=== PATIENT | female | born 1945 | race Caucasian/White ===

== ENCOUNTER 2024-07-12 12:40 | Outpatient (CLI) | payer MEDICARE, SELFPAY ==
[2024-07-12 13:39] LABS: Alanine Aminotransferase 14 U/L (6-35); Albumin Level 4.3 g/dL (3.5-5.1); Alkaline Phosphatase 114 U/L (38-126); Anion Gap 6 mmol/L (4-12); Aspartate Amino Transferase 22 U/L (14-36); Bilirubin,Total 0.7 mg/dL (0.2-1.3); Blood Urea Nitrogen 11 mg/dL (7-17); Calcium 9.4 mg/dL (8.4-10.2); Carbon Dioxide 30 mmol/L (22-30); Chloride 104 mmol/L (98-107); Cholesterol 172 mg/dL (0-200); Estimated Glomerular Filt Rate > 60; Glucose 100 mg/dL (65-110); HDL Direct 105 mg/dL; Potassium 4.3 mmol/L (3.4-5.0); Sodium 140 mmol/L (137-145); Triglycerides 66 mg/dL (<150)
[2024-07-12 13:48] LABS: Basophils Percent Auto 0.2 % (0.2-1.2); Eosinophils Absolute Auto 0.2 K/mm3 (0-0.3); Eosinophils Percent Auto 2.4 % (0-4.4); Hematocrit 48.3 % (37.0-47.0); Hemoglobin 14.7 g/dL (12.0-15.0); Immature Granulocyte Absolute 0.03 K/mm3 (0.00-0.031); Immature Granulocyte Percent A 0.3 % (0-0.5); Lymphocytes Absolute Auto 2.65 K/mm3 (0.9-3.2); Lymphocytes Percent Auto 29.4 % (18.3-44.2); Mean Corpuscular HGB Conc 30.4 g/dl (32-36); Mean Corpuscular Hemoglobin 30.7 pg (26-34); Mean Corpuscular Volume 100.8 fl (80-100); Mean Platelet Volume 9.6 fl (7.4-10.4); Monocytes Absolute Auto 0.8 K/mm3 (0.1-0.6); Monocytes Percent Auto 9.3 % (2.6-8.5); Neutrophils Absolute Auto 5.2 K/mm3 (1.3-6.7); Neutrophils Percent Auto 58.4 % (45.5-73.1); Platelet Count Result 308 k/mm3 (150-375); Red Blood Count 4.79 M/mm3 (4.2-5.4); Red Cell Distribution Width 13.9 % (11.5-14.5)
[2024-07-12 13:50] LABS: LDL Cholesterol Direct 38 mg/dL
--- OUTSIDE RECORDS SUMMARY | 2024-07-12 13:51 | XMS_ITS | Data Portability ---
Author Organization [place] - [facility], [facility] Address [address] [facility] [address] [place] [address] Assessment No assessment recorded. Plan of Treatment Reminders Order Date Submit Date Provider Last Modified By Organization Details Last Modified Time Details Appointments Follow Up 15 2024 02:45P M Anand Hernández MD Not available Not available Not available Lab lipid panel, serum 2024 025 ROSMERY Not available 06/02/2024 04:05:27 microalbu min/creat inine, mass ratio, urine 2024 025 ROSMERY Not available 06/02/2024 04:05:27 vitamin B12, serum 2024 025 [facility] ([facility]olog[facility] Orders Only), [address], [address], [place], [address], 06/02/2024 04:05:27 folate, serum 2024 025 [facility] ([facility]olog[facility]ard Orders Only), [address], [address], [place], [address], 06/02/2024 04:05:27 CBC w/ auto diff 2024 025 [facility] ([facility]ologuard Orders Only), [address], [address], [place], [address], 06/02/2024 04:05:27 lipid panel, serum 2024 025 [facility] ([facility]olog[facility] Orders Only), [address], [address], [place], [address], 06/02/2024 04:05:27 CMP, serum or plasma 2024 025 [facility]), [address], [address], [place], [address], 06/02/2024 04:05:27 urinalysi s complete, reflex culture 2024 025 [facility] ([facility]), [address], [address], [place], [address], 06/02/2024 04:05:28 TSH, serum or plasma 2024 025 [facility] ([facility] Orders Only), [address], [address], [place], [address], 06/02/2024 04:05:28 lipid panel, serum 2023 024 ROSMERY Not available 05/22/2024 05:01:09 microalbu min/creat inine, mass ratio, urine 2023 024 ROSMERY Not available 05/22/2024 05:01:09 vitamin B12, serum 2023 024 [facility] (Cologuard Orders Only), [address], [address], [place], [address], 05/22/2024 05:01:09 folate, serum 2023 024 [facility] (Cologuard Orders Only), [address], [address], [place], [address], 05/22/2024 05:01:09 noninvasi ve colorecta l cancer DNA + occult blood screening , QL, stool 2023 024 [facility] ([facility]ologuard Orders Only), [address], [address], [place], [address], 05/22/2024 05:01:09 lipid panel, serum 2023 024 ROSMERY Not available 05/26/2023 16:08:58 microalbu min/creat inine, mass ratio, urine 2023 024 ROSMERY Not available 11/08/2023 05:01:09 vitamin B12, serum 2023 024 ROSMERY Not available 11/29/2023 05:00:56 folate, serum 2023 024 ROSMERY Not available 11/08/2023 05:01:09 noninvasi ve colorecta l cancer DNA + occult blood screening , QL, stool 2023 024 ROSMERY [facility] (Cologuard Orders Only), [address], [address], [place], [address], 05/13/2023 10:06:25 CBC w/ auto diff 2023 024 ROSMERY Not available 05/26/2023 16:08:58 CMP, serum or plasma 2023 024 ROSMERY Not available 05/26/2023 16:08:58 TSH, serum or plasma 2023 024 ROSMERY Not available 05/26/2023 16:08:58 urinalysi s complete, reflex culture 2023 024 ROSMERY Not available 05/27/2023 16:01:59 microalbu min/creat inine, mass ratio, urine 2023 024 ROSMERY Not available 11/08/2023 05:01:09 Referral orthopedi c surgeon referral 2023 024 moody [facility], [address] [facility], [address], [place], [address], 03/01/2024 10:12:[address]-orthot ist referral 2023 024 [facility], [address], [address], [place], [address], 06/12/2024 05:00:56 Procedures None recorded. Surgeries None recorded. Imaging MRI, shoulder, w/o contrast - right shoulder 2023 024 moody [facility], [address] [facility], [place], [address], 03/01/2024 10:12:39 Medication Orders rosuvasta tin 20 mg tablet 2024 025 ROS[id number] [facility], [address] [place] [address], [address], 05/26/2024 16:41:24 albuterol sulfate HFA 90 mcg/actua tion aerosol inhaler 2024 025 ROS[facility] [address], [address] [place] [address], [address], 05/26/2024 16:41:[address] 20 mg tablet 2024 025 ROSM[facility], [address] [place] [address], [address], 05/26/2024 16:41:25 baclofen 10 mg tablet 2024 025 [facility], [address] [place] [address], [address], 05/26/2024 16:41:25 amlodipin e 5 mg tablet 2024 025 [facility] [address] [facility], [address] [place] [address], [address], 05/26/2024 16:41:25 atorvasta tin 40 mg tablet 2024 025 [facility] [address], [address], 05/26/2024 16:41:25 lisinopri l 40 mg tablet 2024 025 ROS[facility] [id number] [facility], [address] [place] [address], [address], 05/26/2024 16:41:24 Patient TargetsNo targets recorded. Patient Instructions Encounter Date Encounter Id Patient Instructions Last Modified By Organization Details Last Modified Time 11/04/2022 [id number] controlling your asthma: care instructions [email or web address] Not available 11/04/2022 16:55:14 learning about asthma [email or web address] Not available 11/04/2022 16:55:14 proteinuria: car e instructions [email or web address] Not available 11/04/2022 16:55:14 high blood pressure: care instructions [email or web address] Not available 11/04/2022 16:55:14 learning about high blood pressure [email or web address] Not available 11/04/2022 16:55:14 05/05/2023 [id number] proteinuria: car e instructions [email or web address] Not available 05/05/2023 14:17:40 controlling your asthma: care instructions [email or web address] Not available 05/05/2023 14:17:40 learning about asthma [email or web address] Not available 05/05/2023 14:17:39 high blood pressure: care instructions [email or web address] Not available 05/05/2023 14:17:40 learning about high blood pressure [email or web address] Not available 05/05/2023 14:17:40 11/12/2023 [id number] proteinuria: car e instructions [email or web address] Not available 11/12/2023 16:08:59 controlling your asthma: care instructions [email or web address] Not available 11/12/2023 16:08:59 learning about asthma [email or web address] Not available 11/12/2023 16:08:59 high blood pressure: care instructions [email or web address] Not available 11/12/2023 16:08:59 learning about high blood pressure [email or web address] Not available 11/12/2023 16:08:59 02/23/2024 [id number] dislocated shoulder: care instructions [email or web address] Not available 02/23/2024 17:40:33 shoulder dislocation: rehab exercises [email or web address] Not available 02/23/2024 17:40:33 I spent a total of __32____ minutes (excluding separately reportable procedure time ) in care of this patient. [email or web address] Not available 02/23/2024 18:16:59 05/26/2024 [id number] proteinuria: car e instructions [email or web address] Not available 05/26/2024 16:41:18 controlling your asthma: care instructions [email or web address] Not available 05/26/2024 16:41:17 learning about asthma [email or web address] Not available 05/26/2024 16:41:18 high blood pressure: care instructions Not available 05/26/2024 16:41:18 learning about high blood pressure [email or web address] Not available 05/26/2024 16:41:18 I spent a total of _34 minutes (excluding separately reportable procedure time ) in care of this patient. 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 [email or web address] [address], [place], [address], 02/25/2024 17:43:30 Result Notes None recorded. Problems Name Problem SNOMED Code Status Onset Date Resolution Date Notes Provider Name and Address Organization Details Recorded Time Acquired deformit y of ankle AND/OR foot 38908014 Active Acquired deformit y of ankle AND/OR foot Not Available [facility] 3 04:02:22 Acute bronchit is 38686021 Completed 11/04/2022 Acute bronchit is Anand Hernández MD [address] [facility] [address], [place], [address] , [facility] 3 16:40:24 Impaired mobility 22054534 Active 2016 Limited mobility Not Available [facility] 3 04:02:22 Asthma 562325407 Active Asthma Not Available [facility] 3 04:02:22 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 769864570 Active 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 Not Available [facility] 3 04:02:22 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 16694472082 9109 Completed 11/04/2022 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 Anand Hernández MD [address] [facility] [address], [place], [address] , [facility] 3 16:41:37 Asthenia 54148583 Completed 11/04/2022 Weakness Anand Hernández MD [address] [facility] [address], [place], [address] , [facility] 3 16:40:35 Vaccinat ion given 553298111 Completed 201411/04/2022 Vaccinat ion given Anand Hernández MD [address] [facility] [address], [place], [address] , [facility] 3 16:41:38 Preventi ve procedur e Active 2022 [facility] 16:28:46 Mixed hyperlip idemia 117453652 Active 2022 Anand Hernández MD [address], [place], [address] , [facility] 3 16:40:57 Contract ure of multiple joints 323748461 Active 2022 Anand Hernández MD [address], [place], [address] , [facility] 3 16:41:09 Essentia l hyperten grazyna 45609847 Active 2022 Anand Hernández MD [address], [place], [address] , [facility] 3 16:46:29 Vitamin B12 deficien cy (non anemic) 33821044 Active 2022 Anand Hernández MD [address], [place], [address] , [facility] 3 16:46:47 Proteinu precious 01783928 Active 2022 Anand Hernández MD [address] [facility] [address], [place], [address] , [facility] 3 16:48:09 Pain of right shoulder joint 75755902411 846194 Active 2023 [facility] 4 13:49:21 Dislocat ion of shoulder joint 958902732 Active 2023 Anand Hernández MD [address], [place], [address] , [facility] 4 17:37:44 Problem Notes None recorded. Procedures Surgical History None recorded. Imaging Results Imaging Date Name Status LastModified by Organiz ation Details LastModified Time 02/19/2024 XR, shoulder, 2 or more view completed [address], [place], [address], 02/25/2024 17:43:30 Procedure Notes None recorded. Medical Equipment None Reported. Allergies Allergen ID Allergen Name Allergen Category Reaction Reaction Severity Criticality Documentation Date Start Date Code Code System Note Provider Name and Address Organization Details Recorded Time 996 Substance with sulfonami de structure and antibacte rial mechanism of action (substanc e) medicatio n anaphylax is Not available high 11/04/2022 96251 8003 SNOMED [facility] 3 16:23:53 Medications Name Sig Start Date Stop Date Status Note LastModified by Organization Details LastModified Time atorvastatin 40 mg tablet Take 1 tablet every day by oral route for 100 days. 2024 active Not Available Not Available Not Avai lable hydrocodone 5 mg-acetamino phen 325 mg tablet TAKE 1 TABLET BY MOUTH EVERY 6 HOURS NEEDED FOR ACUTE PAIN LESS THAN 7 DAY SUPPLY 05/26 completed Not Available Not Available Not Available lisinopril 20 mg tablet TAKE 1 TABLET BY MOUTH EVERY DAY 05/26 completed Not Available Not Available Not Available amlodipine 5 mg tablet Take 1 tablet every day by oral route. active Not Available Not Available No t Available baclofen 10 mg tablet TAKE 1 TABLET BY MOUTH TWICE A DAY 2024 active Not Available Not Available Not Avai lable zafirlukast 20 mg tablet TAKE 1 TABLET BY MOUTH TWICE DAILY 2024 active Not Available Not Available Not Avai lable albuterol sulfate HFA 90 mcg/actuatio n aerosol inhaler INHALE 2 PUFFS NEEDED EVERY 6 HOURS active Not Available Not Available No t Available lisinopril 40 mg tablet TAKE 1 TABLET BY MOUTH EVERY DAY 2024 active Not Available Not Available Not Avai lable rosuvastatin 20 mg tablet TAKE 1 TABLET BY MOUTH DAILY 2024 active Not Available Not Available Not Avai lable Vitamin D3 1 daily active Not Available Not A vailable Not Available cholecalcife rol (vitamin D3) 50 mcg (2,000 unit) capsule 1 capsule Orally Once a day active Not Available Not Available No t Available [facility] Flonase Allergy Relief 50 mcg/actuatio n nasal spray,susp Nasal 05/26 completed Not Available Not Available Not Available potassium citrate (replacement ) 99 mg capsule Take 1 capsule every day by oral route. active Not Available Not Available No t Available Vitals Date Recorded Body height Body temperature Heart rate Respiratory rate Oxygen saturation Oxygen saturation in Arterial blood by Pulse oximetry Systolic blood pressure Diastolic blood pressure Provider Name and Address Organization Details Last Updated DateTime 4 162.56 cm 97.8 [degF] 85 /min 18 /min 92 % 92 % 100 mm[Hg] 60 mm[Hg] [facility] 4 15:33:45 Date Recorded Body height Body temperature Heart rate Respiratory rate Oxygen saturation Oxygen saturation in Arterial blood by Pulse oximetry Systolic blood pressure Diastolic blood pressure Provider Name and Address Organization Details Last Updated DateTime 4 162.56 cm 98.4 [degF] 108 /min 18 /min 93 % 93 % 121 mm[Hg] 79 mm[Hg] [facility] 4 17:01:02 Date Recorded Body height Body temperature Heart rate Respiratory rate Oxygen saturation Oxygen saturation in Arterial blood by Pulse oximetry Systolic blood pressure Diastolic blood pressure Provider Name and Address Organization Details Last Updated DateTime 5 162.56 cm 98.1 [degF] 89 /min 20 /min 92 % 92 % 118 mm[Hg] 58 mm[Hg] [facility] 5 16:05:43 Date Recorded Body height Body temperature Heart rate Respiratory rate Oxygen saturation Oxygen saturation in Arterial blood by Pulse oximetry Systolic blood pressure Diastolic blood pressure Provider Name and Address Organization Details Last Updated DateTime 3 162.56 cm 98.1 [degF] 90 /min 18 /min 93 % 93 % 100 mm[Hg] 57 mm[Hg] [facility] 3 16:23:02 Date Recorded Body height Body temperature Heart rate Respiratory rate Oxygen saturation Oxygen saturation in Arterial blood by Pulse oximetry Systolic blood pressure Diastolic blood pressure Provider Name and Address Organization Details Last Updated DateTime 4 162.56 cm 97.2 [degF] 90 /min 18 /min 92 % 92 % 122 mm[Hg] 64 mm[Hg] [facility] 4 14:01:18 Social History None recorded. Functional Status None recorded. Mental Status None recorded. Family History Nothing Reported Notes:dad: stroke, HTN Migra ronal Family History: Notes: : STROKE, HTN NOTE: Notes: : STROKE, HTN Medical History No medical history recorded. Gynecological HistoryNo gynecological history recorded. Obstetrics History GPAL:G 0 P 0 0 0 0 Immunizations Vaccine Type Date Status Note Provider Nam e and Address Organization Details Recorded Time zoster recombinant 1 completed Marcela Eckart [facility] 05/05/2023 14:01:33 zoster recombinant 1 completed Marcela Eckart [facility] 05/05/2023 14:01:33 Influenza, high-dose, quadrivalent, PF 3 completed Marcela Eckart [facility] 05/05/2023 14:01:33 Influenza, high-dose, quadrivalent, PF 0 completed Marcela Eckart [facility] 05/05/2023 14:01:33 COVID-19, mRNA, LNP-S, PF, 30 mcg/0.3 mL dose 1 completed Marcela Eckart [facility] 05/05/2023 14:01:33 COVID-19, mRNA, LNP-S, PF, 30 mcg/0.3 mL dose 1 completed Marcela Eckart [facility] 05/05/2023 14:01:33 pneumococcal polysaccharide PPV23 1 completed Marcela Eckart [facility] 05/05/2023 14:01:33 Influenza, split virus, quadrivalent, PF 6 completed [facility] 14:01:33 Influenza, split virus, trivalent, PF 4 completed Marcela Eckart [facility] 05/05/2023 14:01:33 Influenza, split virus, quadrivalent, PF 5 completed Marcela Eckart [facility] 05/05/2023 14:01:33 Influenza, high-dose, trivalent, PF 4 completed Marcela Eckart null, [facility] 02/23/2024 17:01:26 Past Encounters Encounter ID Performer Location Encounter Start Date Encounter Closed Date Diagnosis/Indication Diagnosis SNOMED-CT Code Diagnosis ICD10 Code Diagnosis Note [id number] Anand Hernández MD [facility] [address] [facility] [address] [place] [address] 11/04/2022 16:16:01 11/04/2022 16:58:35 Preventive procedure 704264125 Z29.9 flu: 2covid: 2 shots and booster duepneumon ia; uptodatesh ingles: uptdoate colonoscop y: deferred mammogram: deferred bone density: never Hemiplegia of nondominant side as late effect of cerebrovascular disease 801718287 I69.354 on statinneve r been on aspirin since original stroke in 2008no records avilableli kley related to HTNno further strokes since past 10 years Asthma 545455352 J45.90 9 on ventolin inahleron zafirlukas t Mixed hyperlipidemia 267 284311 E78.2 on rosuvastat inldl 41 06/2248 Contractur e of multiple joints 243332577 M24.50 left ankle brace, left upper arm contractur e goes to [facility] Impaired mobility 565253 05 Z74.09 on wheelchair to get aroundwalk s on a cane at homeleft ankle brace, left upper arm contractur e Essential hypertension 66770578 I10 bp optimalon amlod and lsinopril Vitamin B1 2 deficiency (non anemic) 90247061 E53.8 on vitamin b12 supplement Proteinuria 21270848 R80 .9 mild microalbum inuria. contineu to monitor [id number] Anand Hernández MD [facility] [address] [facility] [address] [place] [address] 05/05/2023 13:57:16 05/05/2023 14:22:30 Essential hypertension 34032567 I10 bp optimalon amlod and lsinopril Hemiplegia of nondominant side as late effect of cerebrovascular disease 539257489 I69.354 on statinneve r been on aspirin since original stroke in 2008no records avilableli kley related to HTNno further strokes since past 10 years Asthma 104408973 J45.90 9 on ventolin inahleron zafirlukas t Mixed hyperlipidemia 267 336261 E78.2 on rosuvastat inldl 41 06/2248 Contractur e of multiple joints 189540932 M24.50 left ankle brace, left upper arm contractur e goes to [facility] Impaired mobility 616505 05 Z74.09 on wheelchair to get aroundwalk s on a cane at homeleft ankle brace, left upper arm contractur e Vitamin B1 2 deficiency (non anemic) 93112466 E53.8 on vitamin b12 supplement Proteinuria 11052271 R80 .9 mild microalbum inuria. contineu to monitor Preventive procedure 169 649124 Z29.9 flu: 2021, ovid: 2 shots and booster duepneumon ia; update ppv23 1shingl es: uptdoaters v: duecolonos copy: deferred: cologuardm ammogram: deferredbo ne density: never Screening for malignant neoplasm of colon 608098642 Z12.11 [id number] Anand Hernández MD [facility] [address] [address] [place] [address] 11/12/2023 15:04:40 11/12/2023 16:12:19 Essential hypertension 70694857 I10 bp optimalon amlod and lsinopril Hemiplegia of nondominant side as late effect of cerebrovascular disease 975062593 I69.354 on statinneve r been on aspirin since original stroke in 2008no records avilableli kley related to HTNno further strokes since past 10 years Asthma 384532432 J45.90 9 on ventolin inahleron zafirlukas t Mixed hyperlipidemia 267 333734 E78.2 on rosuvastat inldl 41 06/2248 Contractur e of multiple joints 745287056 M24.50 left ankle brace, left upper arm contractur e [facility] brace Impaired mobility 099758 05 Z74.09 on wheelchair to get aroundwalk s on a cane at homeleft ankle brace, left upper arm contractur e Vitamin B1 2 deficiency (non anemic) 44143294 E53.8 on vitamin b12 supplement repeat normal Proteinuria 40085950 R80 .9 mild microalbum inuria. contineu to monitor Preventive procedure 169 553991 Z29.9 flu: 2021, ovid: 2 shots and booster duepneumon ia; update ppv23 1shingl es: uptdoaters v: duecolonos copy: deferred: cologuard ordered but she refusedmam mogram: deferredbo ne density: never Screening for malignant neoplasm of colon 985952565 Z12.11 ordered but refused [id number] [facility] [address] [facility] [address] [place] [address] 02/23/2024 16:34:41 02/23/2024 17:48:36 Pain of right shoulder joint 5225331446 2536433 M25.511 xray with possible subluxatio n/dislocat ion of right glenohumer al joint. large effusion noted as well.uncle ar etiology.a dvised to see orthopedic s right away for furthe revaluatio n.will need MRI shoulder joint to further evaluate.w ill send her to ER for prompt evaluation Dislocatio n of shoulder joint 228869328 S43.004A xray with possible subluxatio n/dislocat ion of right glenohumer al joint. large effusion noted as well.uncle ar etiology.a dvised to see orthopedic s right away for furthe revaluatio n.will need MRI shoulder joint to further evaluate.w ill send her to ER for prompt evaluation [id number] Anand Hernández MD [facility] [address] [facility] [address] [place] [address] 05/26/2024 15:58:51 05/26/2024 16:46:23 Dislocation of shoulder joint 182388501 S43.004A S42.293S xray with possible subluxatio n/dislocat ion of right glenohumer al joint. large effusion noted as well.ct with hill sachs fractureor thopedics seenneed reverse artrhoplas ty of shoudler.n o pain currently. she declined surgical treatment Essential hypertension 86249422 I10 bp optimalon amlod and lsinoprilh ad lowish bp in the facility and was lowered but she has been on amlod 5 mg daily and lisnopril 40 mg daily.will continue same Hemiplegia of nondominant side as late effect of cerebrovascular disease 104159788 I69.354 on statinneve r been on aspirin since original stroke in 2008no records avilableli kley related to HTNno further strokes since past 10 years Asthma 862688615 J45.90 9 on ventolin inahleron zafirlukas t Mixed hyperlipidemia 267 866402 E78.2 on rosuvastat inldl 41 06/2248 Contractur e of multiple joints 276372440 M24.50 left ankle brace, left upper arm contractur e [facility] new brace Impaired mobility 055230 05 Z74.09 on wheelchair to get aroundwalk s on a cane at homeleft ankle brace, left upper arm contractur ewheelchai r needs repair. will order that Vitamin B1 2 deficiency (non anemic) 33793069 E53.8 on vitamin b12 supplement repeat normal Proteinuria 44652015 R80 .9 mild microalbum inuria. contineu to monitor Preventive procedure 169 948607 Z29.9 flu: 2021,2022, ovid: 2 shots and booster duepneumon ia; update ppv23 1shingl es: uptdoaters v: duecolonos copy: deferred: cologuard ordered but she refused: could not do due to debilityma mmogram: deferredbo ne density: never Screening for malignant neoplasm of colon 685056477 Z12.11 ordered but refusedcou ld not be processed Health Concerns Section Related Observation LastModified by Organization Detai ls LastModified Time None Recorded Concern Status LastModified by Organization Details LastModified Time None Recorded Advance Directives Directive None Recorded Payers Encounter Date Sequence Insurance Name Policy Number Policy Harrell Covered Member ID Harrell Member ID Guarantor Name 11/04/2022 2 [employer] [place] ON [place] 2020 (MEDICAID REPLACEMENT - HMO) Amy Price [id number] Amy Price 05/05/2023 2 [employer] [place] RE[place]AC[place] - HMO) Amy Price [id number] Amy Price 11/12/2023 1 [place] Amy Price [id number] Amy Price 02/23/2024 1 [place] Price [id number] Amy Price 05/26/2024 1 [place] Amy Price [id number] Amy Price Notes Date Note Type Note Provider Name and Address Organization Details Recorded Time 11/04/2022 text/html Pt here for 6 month f/u. Uses manual wheelchair in house and outside. Maneuvers manual chair well. Still walking in her house down the hallway for exercise daily. No concerns at this time. No chest pain, nausea, vomiting, shortness of breath. MD Magali Ridley[address] [facility] [address], [place], [address], [facility] 11/04/2022 16:55:17 05/05/2023 text/html Pt here for four month follow up. C/O occasional right knee pain 8 out of 10 when it hurts, tylenol helps. Lives alone. Home health aid three times a week. Uses wheelchair for ambulation. No chest pain, shortness of breath, nausea or vomiting. MD Gamal iRdley [address] [facility] [address], [place], [address], [facility] 05/05/2023 14:17:46 11/12/2023 text/html Pt here for lab review. Uses cane and wheelchair at home. She has a personal lines account executive who helps with ADL's three hours a day. She is concerned about a vein in right knee that is occasionally causing pain. No chest pain, shortness of breath, nausea or vomiting. MD Gamal Ridley [address] [facility] [address], [place], [address], [facility] 11/12/2023 16:09:33 02/23/2024 text/html Pt here to discu ss xray. C/O severe right arm pain. Unable to lift arm x 4 days. States pain started February 13. Neighbors are helping her at home with ADL's. Anand Hernández MD [address] [facility] [address], [place], [address], [facility] 02/23/2024 18:17:04 05/26/2024 text/html Pt here for foll ow up. Personal hospital sales representative is present with patient today. Pt states she is walking from bathroom door to toilet with personal secretary and cane otherwise she is in wheelchair at all times. No chest pain, shortness of breath, nausea or vomiting. Pt receiving home therapy and group home. Anand Hernández MD [address] [facility] [address], [place], [address], [facility] 05/26/2024 16:41:49 OBGyn Episode No OBEpisode recorded.
--- OUTSIDE RECORDS SUMMARY | 2024-07-12 13:51 | XMS_ITS | Clinical Summary ---
Author Organization [facility] Address [address] [place] [address] Care Team Providers Care Drugless Physician Name Role Phone Anand Hernández MD Primary Care Provider [phone] Allergies Active Allergy Reactions Criticality Noted Date Comments Celery (Apium Graveolens Lexi . Snow) Skin Test Anaphylaxis High 02/24/2024 Prunus Persica Other (see comment) 02/24/2024 unknown Sulfa Antibiotics Anaphylaxis High 02/23/2024 Medications Cholecalciferol (VITAMIN D3) 50 MCG (2000 UT) Cap daily. Active lisinopril (PRINIVIL) 40 MG tablet Take 1 tablet (40 mg total) by mouth daily. 01/12/2024 Active amLODIPine (NORVASC) 5 MG tablet TAKE 1 TABLET MY MOUTH TWICE DAILY 01/14/2024 Active albuterol sulfate HFA 108 (90 Base) MCG/ACT inhaler INHALE 2 PUFFS NEEDED EVERY 6 HOURS 01/14/2024 Active Potassium Citrate,Element al K, 99 MG Cap Take 1 capsule every day by oral route. Active rosuvastatin (CRESTOR) 20 MG tablet Take 1 tablet (20 mg total) by mouth daily. 01/14/2024 Active zafirlukast (ACCOLATE) 20 MG Tab Take 1 tablet (20 mg total) by mouth 2 (two) times daily. 02/17/2024 Active baclofen (LIORESAL) 10 MG tablet Take 1 tablet (10 mg total) by mouth 2 (two) times daily. 01/18/2024 Active HYDROcodone-kenny taminophen (NORCO) 5-325 MG tabletIndicatio ns:Acute Pain < 7 Day Supply Take 1 tablet by mouth every 6 (six) hours as needed for Pain. Indications: Acute Pain < 7 Day Supply 12 tablet 03/01/2024 Active Active Problems Problem Noted Date Diagnosed Date Anterior dislocation of right shoulder 4 Right shoulder pain 02/23/2024 Family History Medical History Relation Comments None Father None Mother Relation Status Comments Father Mother Social History Tobacco Use Types Packs/Day Years Used Date Smoking Tobacco: Never Smokeless Tobacco: Never Tobacco Cessation:Counseling Given: Not Answered Alcohol Use Standard Drinks/Week Comments Never 0 (1 standard drink = 0.6 oz pur e alcohol) [facility] Utilities Answer Date Recorded In the past 12 months has e electric, gas, oil, or water company threatened to shut off services in your home? No 02/24/2024 Humiliation, Afraid, Rape, and Kick questionnair e Answer Date Recorded Within the last year, have y ou been afraid of your partner or ex-partner? No 02/24/2024 Within the last year, have y ou been humiliated or emotionally abused in other ways by your partner or ex-partner? No Within the last year, have y ou been kicked, hit, slapped, or otherwise physically hurt by your partner or ex-partner? No 02/24/2024 Within the last year, have y ou been raped or forced to have any kind of sexual activity by your partner or ex-partner? No 02/24/2024 Overall Financial Resource Strain (CARDIA) Answe r Date Recorded How hard is it for you to pa y for the very basics like food, housing, medical care, and heating? Not hard at all 02/24/2024 Hunger Vital Sign Answer Date Recorded Within the past 12 months, y ou worried that your food would run out before you got the money to buy more. Never true 02/24/20 24 Within the past 12 months, t he food you bought just didn't last and you didn't have money to get more. Never true 02/24/2024 PRAPARE - Transportation Answer Date Re corded In the past 12 months, has l ack of transportation kept you from medical appointments or from getting medications? No 02/13 In the past 12 months, has l ack of transportation kept you from meetings, work, or from getting things needed for daily living? No 02/24/2024 Housing Stability Vital Sign Answer Onesimo e Recorded In the last 12 months, was t here a time when you were not able to pay the mortgage or rent on time? No 02/24/2024 In the past 12 months, how m any times have you moved where you were living? 0 02/24/2024 At any time in the past 12 m [facility], were you homeless or living in a alf (including now)? No 02/24/2024 Comments Unknown Sex and Gender Information Value Date Recorded Sex Assigned at Female 02/24/2024 2:17 AM [employer] Legal Sex Female 7:13 PM CDT Gender Identity Female 02/24/2024 2:17 AM [employer] Sexual Orientation Not on file Last Filed Vital Signs Vital Sign Reading Time Taken Comments Blood Pressure 109/64 03/01/2024 11:57 AM [employer] Pulse 88 03/01/2024 11:57 AM [employer] Temperature 36.7 C (98.1 F) 03/01/2024 11:57 AM [employer] Respiratory Rate 16 03/01/2024 11:57 AM [employer]IST[employer]PER Oxygen Saturation 91% 03/01/2024 11:57 AM [employer] Inhaled Oxygen Concentration - - Weight 46.3 kg (102 lb 1.2 oz) 03/01/2024 6:00 A M [employer] Height 160 cm (5' 3 ) 02/23/2024 5:11 PM [employer] Body Mass Index 18.08 02/23/2024 5:11 PM [employer]IST[employer] Plan of Treatment Health Maintenance Due Date Last Done Comments Hepatitis C 1963 DTaP, Tdap and Td Vaccines ( 1 - Tdap) 1964 Annual Medicare Wellness Visit 11/08/2011 Dexa Scan (General) 11/08/2011 Pneumococcal Vaccine: 50+ Years (2 of 2 - PCV) 08/23/2021 08/23/2020 RSV Immunization or 60+ Years (1 - 1-dose 75+ series) 2021 COVID-19 Vaccine (3 - 2023-2 5 season) 2023 07/10/2020, 06/12/2020 Zoster Vaccines Completed 12/06/2020, 08/23/2020 Meningococcal B Vaccine Aged Out No l onger eligible based on patient's age to complete this topic Meningococcal Vaccine Aged Out No abel cuong eligible based on patient's age to complete this topic RSV Immunizations Under 20 Months Aged Out No longer eligible b ased on patient's age to complete this topic Goals Goal Patient Goal Type Associated Problems Recent Progress Patient-Stated? Author Discharge Patient/family verbalizes understanding regarding the need for SNF placement Lifestyle No Cara Tracy, RN Insurance [id number] [place] [id number] MEDICARE MEDICAID Advance Directives * Full Code (Latest Code Status on File) Date Activated Date Inactivated Comments 02/23/2024 11:53 PM 03/01/2024 4:11 PM Care Teams Drugless Physician Relationship Specialty Start Date End Date Anand Hernández MD [address] [place] [address] PCP - General INTERNAL MEDICINE 02/19/24
--- OUTSIDE RECORDS SUMMARY | 2024-07-12 13:51 | XMS_ITS | Clinical Summary ---
Author Organization [facility] Address [address] [place] [address] Care Team Providers Care Payable Manager Name Role Phone Anand Hernández MD Primary Care Provider Allergies Active Allergy Reactions Criticality Noted Date Comments Celery (Apium Graveolens) (Umbelliferae) Anaphylaxis High 02/24/2024 Red Willow (Prunus Persica) Other (See comments) Low 01/2024 unknown Sulfa (Sulfonamide Antibiotics) Anaphylaxis High 12/2023 Medications albuterol HFA (PROVENTIL HFA,VENTOLIN HFA,PROAIR HFA) 90 mcg/actuation inhalerIndications: Asthma, unspecified asthma severity, unspecified whether complicated, unspecified whether persistent Inhale 2 puffs every 6 (six) hours as needed for wheezing or shortness of breath 03/05/20 24 Active baclofen (LIORESAL) 10 mg tabletIndications: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 (HCC),Closed Hill-Sachs fracture of right humerus with routine healing, subsequent encounter,Closed fracture of glenoid cavity and neck of right scapula with routine healing Take 1 tablet (10 mg total) by mouth 2 (two) times a day 03/05/20 24 Active cholecalciferol (VITAMIN D-3) 2000 unit capsuleIndications: Closed Hill-Sachs fracture of right humerus with routine healing, subsequent encounter,Closed fracture of glenoid cavity and neck of right scapula with routine healing Take 1 capsule (2,000 Units total) by mouth daily 03/05/20 24 Active zafirlukast (ACCOLATE) 20 mg tabletIndications:A sthma, unspecified asthma severity, unspecified whether complicated, unspecified whether persistent Take 1 tablet (20 mg total) by mouth 2 (two) times a day 03/05/20 24 Active melatonin 5 mg tablet Take 1 tablet (5 mg total) by mouth nightly as needed (sleep) 04/07/19 25 Active potassium gluconate 595 mg (99 mg) tablet Take 1 tablet (595 mg total) by mouth daily 04/07/19 25 Active magnesium hydroxide (MILK OF MAGNESIA) suspension 400 mg/5 mL Active diphenhydramine HCl (BENADRYL ALLERGY ORAL) Take by mouth Active lisinopriL (PRINIVIL,ZESTRIL) 20 mg tabletIndications:E ssential hypertension Take 1 tablet (20 mg total) by mouth daily 30 tablet 04/19/19 25 Active atorvastatin (LIPITOR) 40 mg tabletIndications: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 Spontaneous bleeding workup negative. H&H stable Assessment & Plan (04/18/2024 8:22 PM STRAPPER): Etiology unclear, area is not painful at present. Slowly improving. H&H is stable (12.0/36.7), PT/PTT/platelets (13.8/31/388) all within normal limits Purpura 04/16/2024 Assessment & Plan (04/16/2024 4:08 PM STRAPPER): This is most consistent with a subcutaneous spontaneous venous hemorrhage. It may or may not have been caused by traction of the gait belt against her right chest wall. I have explained the etiology to her satisfaction she has reassured me that she has not been the victim of abuse or harm from the staff. She has not had a fall. We will continue to monitor this and she is told to expect about 3 weeks for the area purpuric to completely resolve. Pressure injury of sacral region, unstageable Assessment & Plan (04/19/2024 5:43 PM STRAPPER): Wound had been improving, continue offloading and wound care. Recommend improving nutritional status Assessment & Plan (04/05/2024 2:25 PM STRAPPER): Wound improving. Continue wound care. Assessment & Plan (03/31/2024 2:10 PM STRAPPER): Refuses low airmattress despite recommendations & risk discussed. Reports she would rather than sleep in that mattress again. Assessment & Plan (03/16/2024 6:42 PM STRAPPER): Continue wound care, continue offloading to prevent worsening skin breakdown. Continue pain control with scheduled Tylenol, p.r.n. [place]. Continue aggressive wound care Assessment & Plan (03/14/2024 6:38 PM STRAPPER): Patient with skin breakdown upon admission with some new changes. Pain is generally controlled with scheduled Tylenol t.i.d., p.r.n. [place]. Patient dislikes the low air loss mattress but understands its purpose. Therapies are in place, monitor patient's progress. Continue aggressive wound care and offloading Closed Hill-Sachs fracture of right humerus 02/14 Assessment & Plan (04/19/2024 5:44 PM STRAPPER): Dr. Alston recommended weight-bearing as tolerated, continue pain control. Ultimately patient would require a reverse total shoulder arthroplasty which would improve patient's mobility and range of motion, patient has currently declined this. Continue pain control. Patient has elected to sign out against medical advice, no prescription for [place] were provided. Recommended Tylenol for pain control. Follow-up as scheduled with Dr. Alston Assessment & Plan (04/18/2024 8:17 PM STRAPPER): Patient had a follow up with Dr. Alston on 04/15: CT scan suggests anterior dislocation, possibly due to chronic rotator cuff tear. Pain is not severe and patient is able to use the arm. Orthopedic surgery recommended that the ultimate treatment would be reconstruction with reverse total shoulder arthroplasty, patient elected to not pursue surgical intervention due to being highly reliant on right upper extremity for mobility due to left upper extremity contraction. Orthopedic surgery recommendations: Activity as tolerated with right shoulder. Weight bearing as tolerated to allow use of cane or walker. Follow-up in 2 months to reassess condition and discuss potential surgical options if necessary. Advised patient that she needs to participate in therapy now that she can weightbear to monitor for safety, we will consider discharge soon with the hopes that she is able to improve in her safety and physical function independently. Discharge has tentatively been set for 04/23/2024, if patient continues to insist about discharge care team does not feel that she is safe she will need to sign out against medical advice. Assessment & Plan (04/16/2024 8:44 AM STRAPPER): Continue with physical and occupational therapy, continue [place] as scripted, follow up with Orthopedics as planned Assessment & Plan (04/05/2024 2:25 PM STRAPPER): Right shoulder dislocation with Hill-Sachs fracture. NWB with sling. Pain controlled. Per ER note, orthopedics Dr. Small at [facility] consulted patient needs a reverse shoulder but not urgently or emergently he recommended that we have patient follow-up with Dr. Rogers or Dr. Mccoy with [facility] ER note also reports Additionally I spoke with Dr. Teresa who says that patient could follow-up with him in clinic. His clinic's number is [phone]. Both orthopedic physicians are reporting that patient does not need any intervention urgently or emergently. They are suspicious that this is more chronic than being 10 days old. Patient was not seen by ED in hospital, just verbal consults. Unable to reach [facility] ortho. Have leroy appt with Dr. Alston 04/15. Assessment & Plan (03/31/2024 2:09 PM STRAPPER): Waiting to here from [facility] ortho still if they will accept her. No new concerns. Continue PT/OT. Patient is pushing dcp 04/08. Will need to dc AMA as she is not stable from tx standpoint. Assessment & Plan (03/28/2024 10:44 AM STRAPPER): XR showed 03/24, Dislocation of the glenohumeral joint. No definite fracture seen. Soft tissue swelling and indeterminate calcification within the upper arm. Recommend correlation with the patient's outside imaging. Follow-up CT may be performed for further evaluation. Have asked radiology to compare from [facility] imaging & addend. Have also asked SS to schedule appt with Ortho at [facility] if they will accept. Patient is becoming continuely frustrated with lack of fu. It was communicated on 03/24 what needed to be scheduled after SS was unable to get ahold of Dr. Palacios office. Assessment & Plan (03/24/2024 12:33 PM STRAPPER): Right shoulder dislocation with Hill-Sachs fracture. NWB with sling. Pain controlled. Per ER note, orthopedics Dr. Small at [facility] consulted patient needs a reverse shoulder but not urgently or emergently he recommended that we have patient follow-up with Dr. Rogers or Dr. Mccoy with [facility] ER note also reports Additionally I spoke with Dr. Teresa who says that patient could follow-up with him in clinic. His clinic's number is [phone]. Both orthopedic physicians are reporting that patient does not need any intervention urgently or emergently. They are suspicious that this is more chronic than being 10 days old. Patient was not seen by ED in hospital, just verbal consults. I am ordering XR today & will have SS schedule ortho fu with [facility] in [place] for continuity of care & to hopefully get WB advancement. Assessment & Plan (03/22/2024 4:36 PM STRAPPER): This is subacute. She continues with her physical therapy. We will continue with [place] as scripted Assessment & Plan (03/16/2024 6:41 PM STRAPPER): Patient remains nonweightbearing to the right upper extremity. Pain is generally controlled with scheduled Tylenol, p.r.n. [place], baclofen 10 mg b.i.d.. Therapies are in place, monitor patient's progress. Assessment & Plan (03/15/2024 11:07 AM STRAPPER): This is subacute and currently stable. The patient asked to see me because she is fearful that she will have to go home without use of her right upper extremity. 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 We will continue scripting of her [place] as ordered. We will continue baclofen 10 mg p.o. b.i.d.. She is to follow up with Orthopedic surgery for further recommendation. In the interim she is to continue PT OT Assessment & Plan (03/13/2024 7:54 AM STRAPPER): This is subacute but currently stable. We will continue scripting of Lovenox 40 mg subcutaneous daily for prophylaxis and [place] 1 tablet every 6 hours p.r.n. pain. She has asked several times about her lack of progress. I have explained that she is to recover from the fracture, take physical therapy, follow up with the Orthopedic surgery at which point she will receive further advice on the care of this fracture. She voices understanding. Assessment & Plan (03/07/2024 3:37 PM STRAPPER): Nonweightbearing to the right upper extremity, supposed to have sling in place although patient finds this uncomfortable. She is frustrated because she has limited use of either upper extremity, reports that staff is not really willing to help her at times. Pain controlled, continue scheduled Tylenol t.i.d., baclofen 10 mg b.i.d., [place] q.6 p.r.n.. Assessment & Plan (03/05/2024 12:23 PM STRAPPER): This is treated non operatively. We will consult and continue physical and occupational therapy. Speech therapy will also work with Amy because at the present time she can not even feed herself. We will continue the [place] as ordered for pain. We will continue Lovenox 40 mg subcutaneous daily for DVT prophylaxis. Our goal is a transition to the community setting in a safe fashion with reduced fall risk. She will follow up with Orthopedics in the outpatient clinic. Abnormal CXR 03/05/2024 Assessment & Plan (04/05/2024 2:24 PM STRAPPER): Nodular opacities noted. Symptom a current such as new cough, chest pain or shortness of breath. I suggest follow up with primary provider post discharge Assessment & Plan (03/05/2024 12:33 PM STRAPPER): Nodular opacities noted. Symptom a current such as new cough, chest pain or shortness of breath. I suggest follow up with primary provider post discharge Asthma 03/02/2024 Overview (03/02/2024): Asthma Assessment & Plan (03/07/2024 3:42 PM STRAPPER): Patient with some rhonchi but no bronchospasm. Patient was requesting the use of Benadryl which she uses at home twice a day to help with her secretions. Continue albuterol HFA p.r.n.. Patient was not interested in attempting a chronic inhaled preventative medicine. Continue b.i.d. Zafirlukast. Discussed with patient the possibility of increasing fall risk with Benadryl, as well as worsening lethargy. Patient understands but would like to proceed with b.i.d. Benadryl. Hemiplegia of nondominant si de as late effect of cerebrovascular disease 03/02/2024 Overview (03/02/2024): Hemiplegia of nondominant side as late effect of cerebrovascular disease Assessment & Plan (04/19/2024 5:46 PM STRAPPER): Left upper extremity contracture. Continue baclofen, pain control, post stroke prophylaxis with blood pressure control and atorvastatin. Assessment & Plan (03/14/2024 6:39 PM STRAPPER): Chronic left lower and left upper extremity weakness. Continue post stroke prophylaxis with blood pressure management, rosuvastatin. Baclofen scheduled b.i.d. for spasms Assessment & Plan (03/07/2024 3:38 PM STRAPPER): Unchanged weakness to left upper and lower extremity edema. Continue baclofen for spasms. Continue post stroke prophylaxis with blood pressure control, rosuvastatin Dislocation of shoulder joint 02/22/2024 Contracture of multiple joints 11/04/2022 Essential hypertension 11/04/2022 Assessment & Plan (04/19/2024 5:43 PM STRAPPER): Patient's blood pressure has been lower however patient asymptomatic. Discontinue amlodipine. Reduce lisinopril to 20 mg daily. Recommend close follow-up with PCP Assessment & Plan (04/18/2024 8:10 PM STRAPPER): Blood pressure lower, we will hold Norvasc, if remains lower would recommend reducing lisinopril dose. Continue 40 mg daily for now Assessment & Plan (04/16/2024 8:43 AM STRAPPER): Chronic, stable. Continue scripting amlodipine and lisinopril Assessment & Plan (03/22/2024 4:36 PM STRAPPER): This is chronic and stable. We will continue scripting of amlodipine and lisinopril Assessment & Plan (03/16/2024 6:37 PM STRAPPER): Blood pressure well controlled, continue lisinopril, Norvasc Assessment & Plan (03/14/2024 6:37 PM STRAPPER): Blood pressure is mildly elevated, will increase Norvasc to 10 mg daily, continue lisinopril 40 mg daily Assessment & Plan (03/13/2024 7:54 AM STRAPPER): This is chronic and currently stable. We will continue amlodipine and lisinopril as scripted Assessment & Plan (03/07/2024 3:36 PM STRAPPER): Blood pressure well controlled, continue Norvasc 5 mg daily, lisinopril 40 mg daily, Mixed hyperlipidemia 11/04/2022 Assessment & Plan (04/16/2024 8:44 AM STRAPPER): Continue scripting atorvastatin 40 mg daily Resolved Problems Problem Noted Date Diagnosed Date Resolved Date Gross hematuria 03/22/2024 03/24/2024 Assessment & Plan (03/22/2024 4:35 PM STRAPPER): She is seen with the director of nurses and sql database administrator. Her depends show evidence of bright red blood. The clinical impression is that this is not rectal but urinary. It also does not appear to be from any skin bleeding. I have placed Lovenox on hold. By history she had a straight cath yesterday and then some blood-tinged urine afterwards. This was done for retention. I have asked the nurses to obtain a stat CBC and anchor a Lund for 24 hours. If the urine clears in the CBC is stable then the Lund could be removed. Retention of urine 03/22/2024 Assessment & Plan (03/24/2024 12:33 PM STRAPPER): Voiding on own. Assessment & Plan (03/22/2024 4:48 PM STRAPPER): Patient had mild retention overweekend. Required ISC & trauma associated causing hematuria. Believe retention exc by hematuria/clot. Urine has since clear. Labs do show elevation of WBC & recheck ordered for am. If remains elevated would consider UA with reflux. Patient would like to attempt voiding trial. Have ordered. Chronic cough 03/07/2024 03/07/2024 Closed fracture of glenoid c avity and neck of right scapula with routine healing 03/05/202403/24 Weakness due to old stroke 03/02/2024 0 03/24/2024 Overview (03/02/2024): 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 Proteinuria 11/04/2022 03/24/2024 Encounters Date Type Department Care Team Description 04/22/2024 Telephone [facility] Post Acute [facility] [address] [facility] [address] [place] [phone] Nivia Springer MA 04/19/2024 NH/SNF Visit [facility] Post Acute Care [address] [phone] Krystle Gamble PA Closed Hill-Sachs fracture of right humerus with routine healing, subsequent encounter (Primary Dx); Essential hypertension; Pressure injury of sacral region, unstageable (HCC); 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); Discoloration of skin of flank resembling ecchymosis 04/18/2024 Orders Only [facility] [address] [place] [phone] Krystle Gamble PA 04/18/2024 NH/SNF Visit [facility] Post Acute [facility] [address] [phone] Krystle Gamble PA Essential hypertension (Primary Dx); Closed Hill-Sachs fracture of right humerus with routine healing, subsequent encounter; Discoloration of skin of flank resembling ecchymosis 04/15/2024 11:00 AM STRAPPER - 04/15/2024 11:59 PM STRAPPER Hospital Encounter [facility] [address] [place] [id number] Chronic right shoulder pain Discharge Disposition: Discharge to home or self care 04/15/2024 11:00 AM STRAPPER Office Visit [facility] [address] [place] [phone] Giovani Alston MD Chronic right shoulder pain (Primary Dx) 04/14/2024 Orders Only [facility] [address] [place] [phone] Krystle Gamble PA 04/13/2024 NH/SNF Visit [facility] [address] [phone] Charlie Olsen MD Purpura (Primary Dx) from Last 3 Months Medical History Medical History Date Comments Closed Hill-Sachs fracture of right humerus 02/14 Closed fracture of glenoid c avity and neck of right scapula with routine healing 03/05/2024 Social History Tobacco Use Types Packs/Day Years Used Date Smoking Tobacco: Never Assessed Comments Unknown Sex and Gender Information Value Date Recorded Sex Assigned at Not on file Legal Sex Female 8:52 PM STRAPPER Gender Identity Not on file Sexual Orientation Not on file Obstetrics History Last Filed Vital Signs Vital Sign Reading Time Taken Comments Blood Pressure 106/65 04/19/2024 5:17 PM STRAPPER Pulse 84 04/19/2024 5:17 PM STRAPPER Temperature 36.5 C (97.7 F) 04/19/2024 5:17 PM STRAPPER Respiratory Rate 20 04/19/2024 5:17 PM STRAPPER Oxygen Saturation 94% 04/19/2024 5:17 PM STRAPPER Inhaled Oxygen Concentration - - Weight 50.8 kg (112 lb) 04/15/2024 11:21 AM STRAPPER Height 160 cm (5' 3 ) 04/15/2024 11:21 AM STRAPPER Body Mass Index 19.84 04/15/2024 11:21 AM STRAPPER Plan of Treatment Health Maintenance Due Date Last Done Comments Depression Screening 1945 Fall Risk Assessment 1945 Hepatitis C Screening 1945 Osteoporosis Screening-Bone Density Scan 1945 DTaP/Tdap/Td Vaccine (1 - Tdap) 1957 Hepatitis B Screening 1964 Well Visit 65+ 11/08/2011 Pneumococcal vaccine 65+ (2 of 2 - PCV) 08/23/2021 08/23/2020 Covid-19 Vaccine (3 - 2023-2 5 season) 2023 07/10/2020, 06/12/2020 Zoster Vaccine Completed 12/06/2020, 08/23/2020 Influenza Vaccine Completed 12/03/2023, , 02/03/2020, Additional history exists Procedures Procedure Name Priority Date/Time Associated Diagnosis Comments EGFR Routine 04/18/2024 7:42 AM STRAPPER BASIC METABOLIC PANEL Routine 04/18/2024 7:42 AM STRAPPER CBC WITHOUT DIFFERENTIAL Routine 04/18/2024 7:42 AM STRAPPER XR SHOULDER RIGHT 2 OR MORE VIEWS Schedule Routine, Read Routine (OP Routine) 04/15/2024 11:10 AM STRAPPER Chronic right shoulder pain EGFR Routine 04/14/2024 6:36 AM STRAPPER BASIC METABOLIC PANEL Routine 04/14/2024 6:36 AM STRAPPER PROTIME-INR Routine 04/14/2024 6:36 AM STRAPPER APTT Routine 04/14/2024 6:36 AM STRAPPER CBC WITHOUT DIFFERENTIAL Routine 04/14/2024 6:36 AM STRAPPER from Last 3 Months Results * eGFR (04/18/2024 7:42 AM STRAPPER) eGFR 90 >=60 mL/min/1. 73 m2 [facility] Comment: Interpretive Data Reference Interval Normal >/= 90 mL/min/1.73m2 Mildly decreased* 60 - 89 mL/min/1.73m2 Mildly to moderately decreased 45 - 59 mL/min/1.73m2 Moderately to severely decreased 30 - 44 mL/min/1.73m2 Severely decreased 15 - 29 mL/min/1.73m2 Kidney Failure < 15 mL/min/1.73m2 *Relative to young adult level Estimated glomerular filtration rate is determined by the 2020 CKD-EPI equation recommended by the National Kidney Foundation (A Unifying Approach to GFR Estimation: Recommendations of the NKF-ASK Task Force on Reassessing the Inclusion of Race in Diagnosing Kidney Disease, JASN 2020). The CKD-EPI equation should not be used for patients with unstable renal function and has not been validated in children and those over 70. Current interpretive data was last reviewed 2021. [facility], [facility], [place]., [address] Blood 04/18/2024 7:42 AM STRAPPER 04/18/2024 8:33 AM STRAPPER us Krystle MATTHEWS LAB BLOOD ORDERABLES Final Resu lt [facility] [address] [facility] Department [place] [address] * (ABNORMAL) CBC without differential (04/18/2024 7:42 AM STRAPPER) WBC 9.9 3.8 - 9.9 K/cumm SHI Comment:[address], [address] Hgb 12.0 11.9 - 15.5 g/dL [facility] Comment:[address], [address] Hct 36.7 35.6 - 45.5 % SH[facility] Comment:[address], [address] Plt 388 150 - 400 K/cumm [facility] Comment:[address], [address] MPV 8.5(L) 9.1 - 12.3 fL [facility] Comment:[address], [address] RBC 3.74(L) 3.90 - 5.20 M/cumm [facility] Comment:[address], [address] MCV 98.1(H) 81.3 - 96.4 fL [facility] Comment:[address], [address] MCH 32.1 27.1 - 33.3 pg [facility] Comment:[address], [address] MCHC 32.7 32.3 - 35.7 g/dL [facility] Comment:[address], [address] RDW CV 14.4 11.1 - 14.9 % [facility] Comment:[address], [address] RDW SD 51.6(H) 35.7 - 48.1 fL [facility] Comment:[address], [address] NRBC abs 0.00 0.00 - 0.01 K/cumm [facility] Comment:[address], [address] Blood 04/18/2024 7:4 2 AM STRAPPER 04/18/2024 8:33 AM STRAPPER Krystle MATTHEWS LAB BLOOD ORDERABLES Final Resu lt [facility] [address] Department [place] [address] * (ABNORMAL) Basic metabolic panel (04/18/2024 7:42 AM STRAPPER) Sodium 134(L) 135 - 145 mmol/L [facility] Comment:[address] [address] Potassium, pl 4.5 3.3 - 4.9 mmol/L [facility] Comment:[address] [address] Chloride 100 97 - 110 mmol/L [facility] Comment:[address] [address] CO2 25 22 - 32 mmol/L [facility] Comment:[address] [address] Anion gap 9 2 - 15 mmol/L [facility] Comment:[address] [address] BUN 29(H) 6 - 25 mg/dL [facility] Comment:[address] [address] Creatinine 0.67 0.60 - 1.10 mg/dL [facility] Comment:[address] [address] Glucose 102 70 - 199 mg/dL [facility] Comment: Interpretive Data Fasting glucose >/= 126 mg/dl is diagnostic for diabetes. Fasting is defined as no caloric intake for at least 8 hours. Fasting glucose between 100 mg/dl to 125 mg/dl is diagnostic of prediabetes. In a patient with classic symptoms of hyperglycemia or hyperglycemic crisis, a random glucose >/= 200 mg/dl is diagnostic for diabetes. In the absence of unequivocal hyperglycemia, results should be confirmed by repeat testing. The classification and Diagnosis of Diabetes Diabetes Care 2021; 46: S19-S40. Current interpretive data was last revised 2022. [address], [place]., [address] Calcium 9.5 8.5 - 10.3 mg/dL [facility] WHITE Comment:[facility], [address] [place]., [address] Blood 04/18/2024 7:42 AM STRAPPER 04/18/2024 8:33 AM STRAPPER Krystle MATTHEWS LAB BLOOD ORDERABLES Final Resu lt SHI WHITE [address] [facility] Department [place] [address] * XR Shoulder Right 2 or More Views (04/15/2024 11:10 AM STRAPPER) Anatomical Region Laterality Modality Upper Extremities, Shoulder Right Comp uted Radiography 04/17/2024 8:19 PM STRAPPER Narrative 04/17/2024 8:23 PM STRAPPER EXAM DESCRIPTION: XR SHOULDER RIGHT 2 OR MORE VIEWS REASON FOR STUDY: right shoulder pain Large lump superior x 2 mths, NKI FINDINGS: Four views submitted with comparison 03/24/2024. Redemonstrated is a chronic appearing anterior shoulder dislocation. Marked soft tissue swelling with debris is consistent with likely chronic rotator cuff arthropathy and fluid distention of the subacromial subdeltoid bursa. Acromioclavicular joint osteoarthritis is present. IMPRESSION: Unchanged chronic appearing anterior right shoulder dislocation. Marked soft tissue swelling with debris consistent with likely chronic rotator cuff arthropathy and fluid distention of the subacromial subdeltoid bursa. THIS IS AN ELECTRONICALLY VERIFIED FINAL REPORT 04/17/2024 8:23 PM - Electronically signed by Víctor Sanchez M.D. T: Report ID: [id number] Reading Location: [id number] Procedure Note Víctor Sanchez MD - 04/17/2024 EXAM DESCRIPTION: XR SHOULDER RIGHT 2 OR MORE VIEWS REASON FOR STUDY: right shoulder pain Large lump superior x 2 mths, NKI FINDINGS: Four views submitted with comparison 03/24/2024. Redemonstrated is a chronic appearing anterior shoulder dislocation.Marked soft tissue swelling with debris is consistent with likely chronic rotator cuff arthropathy and fluid distention of the subacromial subdeltoid bursa. Acromioclavicular joint osteoarthritis is present. IMPRESSION: Unchanged chronic appearing anterior right shoulder dislocation. Marked soft tissue swelling with debris consistent with likely chronic rotator cuff arthropathy and fluid distention of the subacromialsubdeltoid bursa. THIS IS AN ELECTRONICALLY VERIFIED FINAL REPORT 04/17/2024 8:23 PM - Electronically signed by Víctor Sanchez M.D. T: Report ID: [id number] Reading Location: [place] [address] us Giovani Alston MD IMG XR PROCEDURES Final Re sult * eGFR (04/14/2024 6:36 AM STRAPPER) eGFR 90 >=60 mL/min/1. 73 m2 SHI Comment: Interpretive Data Reference Interval Normal >/= 90 mL/min/1.73m2 Mildly decreased* 60 - 89 mL/min/1.73m2 Mildly to moderately decreased 45 - 59 mL/min/1.73m2 Moderately to severely decreased 30 - 44 mL/min/1.73m2 Severely decreased 15 - 29 mL/min/1.73m2 Kidney Failure < 15 mL/min/1.73m2 *Relative to young adult level Estimated glomerular filtration rate is determined by the 2020 CKD-EPI equation recommended by the National Kid[employer] (A Unifying Approach to GFR Estimation: Recommendations of the NKF-ASK Task Force on Reassessing the Inclusion of Race in Diagnosing Kidney Disease, JASN 2020). The CKD-EPI equation should not be used for patients with unstable renal function and has not been validated in children and those over 70. Current interpretive data was last reviewed 2021. [facility], [facility], [place]., [address] Blood 04/14/2024 6:36 AM STRAPPER 04/14/2024 7:30 AM STRAPPER us Krystle MATTHEWS LAB BLOOD ORDERABLES Final Resu lt Performing Organization Address City/[facility] Co de Phone Number SHI [address] [employer] [address] * aPTT (04/14/2024 6:36 AM STRAPPER) aPTT 31 22 - 37 sec SHI Comment: Interpretive data aPTT test has not been evaluated for monitoring heparin therapy. The anti-Xa is the preferred test. Current interpretive data was last revised on 2019. [facility], [address] [place] [address]., [address] Blood 04/14/2024 6:36 AM STRAPPER 04/14/2024 7:30 AM STRAPPER Krystle MATTHEWS LAB BLOOD ORDERABLES Final Resu lt Performing Organization Address [facility] de Phone Number SHI [address] [address] * Protime-INR (04/14/2024 6:36 AM STRAPPER) PT 13.8 12.0 - 14.6 sec SHI Comment:[facility], [address] [place]., [address] INR 1.0 0.9 - 1.2 SHI Comment: Ref Range High Interpretive data Oral anticoagulant therapeutic ranges: Venous thromboembolism prophylaxis or treatment: 2.0-3.0 CARDIOLOGY Standard range: 2.0-3.0 High-intensity range: 2.5-3.5 Refer to indication-specific guidelines for appropriate target ranges for prosthetic heart valve replacement. Current interpretive data was last revised on 2019. [facility], [address] [place] [address]., [address] Blood 04/14/2024 6:36 AM STRAPPER 04/14/2024 7:30 AM STRAPPER Krystle MATTHEWS LAB BLOOD ORDERABLES Final Resu lt Performing Organization Address [facility] Co de Phone Number SHI [address] [address] * (ABNORMAL) CBC without differential (04/14/2024 6:36 AM STRAPPER) WBC 10.7(H) 3.8 - 9.9 K/cumm SHI Comment:[address], [address] Hgb 11.7(L) 11.9 - 15.5 g/dL CERJESS Comment:[address], [address] Hct 36.0 35.6 - 45.5 % CERJESS Comment:[address], [address] Plt 364 150 - 400 K/cumm SHI MH Comment:[address], [address] MPV 8.7(L) 9.1 - 12.3 fL CERJESS Comment:[address], [address] RBC 3.68(L) 3.90 - 5.20 M/cumm CERJESS Comment:[address], [address] MCV 97.8(H) 81.3 - 96.4 fL CERJESS Comment:[address], [address] MCH 31.8 27.1 - 33.3 pg CERJESS MH Comment:[address], [address] MCHC 32.5 32.3 - 35.7 g/dL SHI Comment:[address], [address] RDW CV 14.2 11.1 - 14.9 % CERJESS Comment:[address], [address] RDW SD 50.9(H) 35.7 - 48.1 fL SHI Comment:[address], [address] NRBC abs 0.00 0.00 - 0.01 K/cumm SHI Comment:[address], [address] Blood 04/14/2024 6:36 AM STRAPPER 04/14/2024 7:30 AM STRAPPER us Krystle MATTHEWS LAB BLOOD ORDERABLES Final Resu lt SHI [address] Department [place] [address] * (ABNORMAL) Basic metabolic panel (04/14/2024 6:36 AM STRAPPER) Sodium 132(L) 135 - 145 mmol/L SHI Comment:[address] [address] Potassium, pl 4.4 3.3 - 4.9 mmol/L SHI Comment:[address] [address] Chloride 99 97 - 110 mmol/L SHI Comment:[address] [address] CO2 25 22 - 32 mmol/L SHI Comment:[address] [address] Anion gap 8 2 - 15 mmol/L SHI Comment:[address] [address] BUN 22 6 - 25 mg/dL SHI Comment:[address] [address] Creatinine 0.66 0.60 - 1.10 mg/dL SHI Comment:[address] [address] Glucose 90 70 - 199 mg/dL SHI Comment: Interpretive Data Fasting glucose >/= 126 mg/dl is diagnostic for diabetes. Fasting is defined as no caloric intake for at least 8 hours. Fasting glucose between 100 mg/dl to 125 mg/dl is diagnostic of prediabetes. In a patient with classic symptoms of hyperglycemia or hyperglycemic crisis, a random glucose >/= 200 mg/dl is diagnostic for diabetes. In the absence of unequivocal hyperglycemia, results should be confirmed by repeat testing. The classification and Diagnosis of Diabetes Diabetes Care 202; 46: S19-S40. Current interpretive data was last revised 2022. [facility], [address] [place] [address]., [address] Calcium 9.5 8.5 - 10.3 mg/dL SHI WHITE Comment:[facility], [address] [facility], [place]., [address] Blood 04/14/2024 6:36 AM STRAPPER 04/14/2024 7:30 AM STRAPPER us Krystle MATTHEWS LAB BLOOD ORDERABLES Final Resu lt SHI WHITE [address] [facility] [place] [address] from Last 3 Months Insurance [address] [id number] MEDICARE [facility] Care Teams Payable Manager Relationship Specialty Start Date End Date Anand Hernández MD [address] [facility] [address] [address] PCP - General Internal Medicine 07/12/21
--- OUTSIDE RECORDS SUMMARY | 2024-07-12 13:51 | XMS_ITS | Referral Summary ---
Author Organization [facility] Address [address] [place] [address] Care Team Providers Care Field Rep Name Role Phone Anand Hernández MD Primary Care Provider Encounters Date Type Department Care Team Description 04/22/2024 Telephone [facility] Medical [facility] Post Acute Care [address] [facility] [address] [place] [phone] Nivia Springer MA 04/19/2024 NH/SNF Visit [facility] Medical [facility] Post Acute Care [address] [phone] Krystle Gamble PA Closed Hill-Sachs fracture of right humerus with routine healing, subsequent encounter (Primary Dx); Essential hypertension; Pressure injury of sacral region, unstageable (HCC); 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); Discoloration of skin of flank resembling ecchymosis 04/18/2024 Orders Only [facility] Medical [facility] Hospitalists [address] [place] [phone] Krystle Gamble PA 04/18/2024 NH/SNF Visit [facility] Medical [facility] Post Acute Care [address] [phone] Krystle Gamble PA Essential hypertension (Primary Dx); Closed Hill-Sachs fracture of right humerus with routine healing, subsequent encounter; Discoloration of skin of flank resembling ecchymosis 04/15/2024 11:00 AM SURVEY MANAGER - 04/15/2024 11:59 PM SURVEY MANAGER Hospital Encounter [facility] [address] [place] [address] Chronic right shoulder pain Discharge Disposition: Discharge to home or self care 04/15/2024 11:00 AM SURVEY MANAGER Office Visit [facility]oped[facility] Sports Medicine [address] [facility] [address] [place] [phone] Giovani Alston MD Chronic right shoulder pain (Primary Dx) 04/14/2024 Orders Only [facility] Hospitalists [address] [place] [phone] Krystle Gamble PA 04/13/2024 NH/SNF Visit [facility] Post Acute Care [facility] [address] [place] [phone] Charlie Olsen MD Purpura (Primary Dx) from Last 3 Months Allergies Active Allergy Reactions Criticality Noted Date Comments Celery (Apium Graveolens) (Umbelliferae) Anaphylaxis High 02/24/2024 Parmer (Prunus Persica) Other (See comments) Low 01/2024 [...] 04/17/2024 Assessment & Plan (04/19/2024 5:45 PM SURVEY MANAGER): Improving, etiology unclear. Spontaneous bleeding workup negative. H&H stable Assessment & Plan (04/18/2024 8:22 PM SURVEY MANAGER): Etiology unclear, area is not painful at present. Slowly improving. H&H is stable (12.0/36.7), PT/PTT/platelets (13.8/31/388) all within normal limits Purpura 04/16/2024 Assessment & Plan (04/16/2024 4:08 PM SURVEY MANAGER): This is most consistent with a subcutaneous [...] unstageable Assessment & Plan (04/19/2024 5:43 PM SURVEY MANAGER): Wound had been improving, continue offloading and wound care. Recommend improving nutritional status Assessment & Plan (04/05/2024 2:25 PM SURVEY MANAGER): Wound improving. Continue wound care. Assessment & Plan (03/31/2024 2:10 PM SURVEY MANAGER): Refuses low airmattress despite recommendations & risk discussed. Reports she would rather than sleep in that mattress again. Assessment & Plan (03/16/2024 6:42 PM SURVEY MANAGER): Continue wound care, continue offloading to prevent worsening skin breakdown. Continue pain control with scheduled Tylenol, p.r.n. West. Continue aggressive wound care Assessment & Plan (03/14/2024 6:38 PM SURVEY MANAGER): Patient with skin breakdown upon admission with some new changes. Pain is generally controlled with scheduled Tylenol t.i.d., p.r.n. West. Patient dislikes the low air loss mattress but understands its purpose. Therapies are in place, monitor patient's progress. Continue aggressive wound care and offloading Closed Hill-Sachs fracture of right humerus 02/14 Assessment & Plan (04/19/2024 5:44 PM SURVEY MANAGER): Dr. Alston recommended weight-bearing as tolerated, continue pain control. Ultimately patient would require a reverse total shoulder arthroplasty which would improve patient's mobility and range of motion, patient has currently declined this. Continue pain control. Patient has elected to sign out against medical advice, no prescription for West were provided. Recommended Tylenol for pain control. Follow-up as scheduled with Dr. Alston Assessment & Plan (04/18/2024 8:17 PM SURVEY MANAGER): Patient had a follow up with Dr. [...] advice. Assessment & Plan (04/16/2024 8:44 AM SURVEY MANAGER): Continue with physical and occupational therapy, continue West as scripted, follow up with Orthopedics as planned Assessment & Plan (04/05/2024 2:25 PM SURVEY MANAGER): Right shoulder dislocation with Hill-Sachs fracture. NWB with sling. Pain controlled. Per ER note, orthopedics Dr. Small at [facility] consulted patient needs a reverse shoulder but not urgently or emergently he recommended that we have patient follow-up with Dr. Rogers or Dr. Mccoy with [facility] ER note also reports Additionally I spoke with Dr. Teresa who says that patient could follow-up with him in clinic. His clinic's number is [phone]. Both orthopedic physicians are reporting that patient does not need any intervention urgently or emergently. They are suspicious that this is more chronic than being 10 days old. Patient was not seen by ED in hospital, just verbal consults. Unable to reach [facility] ortho. Have leroy appt with Dr. Alston 04/15. Assessment & Plan (03/31/2024 2:09 PM SURVEY MANAGER): Waiting to here from [facility] ortho still if they will accept her. No new concerns. Continue PT/OT. Patient is pushing dcp 04/08. Will need to dc AMA as she is not stable from tx standpoint. Assessment & Plan (03/28/2024 10:44 AM SURVEY MANAGER): XR showed 03/24, Dislocation of the glenohumeral joint. No definite fracture seen. Soft tissue swelling and indeterminate calcification within the upper arm. Recommend correlation with the patient's outside imaging. Follow-up CT may be performed for further evaluation. Have asked radiology to compare from [facility] imaging & addend. Have also asked SS to schedule appt with Ortho at [facility] if they will accept. Patient is becoming continuely frustrated with lack of fu. It was communicated on 03/24 what needed to be scheduled after SS was unable to get ahold of Dr. Palacios office. Assessment & Plan (03/24/2024 12:33 PM SURVEY MANAGER): Right shoulder dislocation with Hill-Sachs fracture. NWB with sling. Pain controlled. Per ER note, orthopedics Dr. Small at [facility] consulted patient needs a reverse shoulder but not urgently or emergently he recommended that we have patient follow-up with Dr. Rogers or Dr. Mccoy with [facility] ER note also reports Additionally I spoke with Dr. Teresa who says that patient could follow-up with him in clinic. His clinic's number is [phone]. Both orthopedic physicians are reporting that patient does not need any intervention urgently or emergently. They are suspicious that this is more chronic than being 10 days old. Patient was not seen by ED in hospital, just verbal consults. I am ordering XR today & will have SS schedule ortho fu with [facility] Ortho in [place] for continuity of care & to hopefully get WB advancement. Assessment & Plan (03/22/2024 4:36 PM SURVEY MANAGER): This is subacute. She continues with her physical therapy. We will continue with West as scripted Assessment & Plan (03/16/2024 6:41 PM SURVEY MANAGER): Patient remains nonweightbearing to the right upper extremity. Pain is generally controlled with scheduled Tylenol, p.r.n. West, baclofen 10 mg b.i.d.. Therapies are in place, monitor patient's progress. Assessment & Plan (03/15/2024 11:07 AM SURVEY MANAGER): This is subacute and currently stable. The patient asked to see me because she is fearful that she will have to go home without use of her right upper extremity. 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 We will continue scripting of her West as ordered. We will continue baclofen 10 mg p.o. b.i.d.. She is to follow up with Orthopedic surgery for further recommendation. In the interim she is to continue PT OT Assessment & Plan (03/13/2024 7:54 AM SURVEY MANAGER): This is subacute but currently stable. We will continue scripting of Lovenox 40 mg subcutaneous daily for prophylaxis and West 1 tablet every 6 hours p.r.n. pain. She has asked several times about her lack of progress. I have explained that she is to recover from the fracture, take physical therapy, follow up with the Orthopedic surgery at which point she will receive further advice on the care of this fracture. She voices understanding. Assessment & Plan (03/07/2024 3:37 PM SURVEY MANAGER): Nonweightbearing to the right upper extremity, supposed to have sling in place although patient finds this uncomfortable. She is frustrated because she has limited use of either upper extremity, reports that staff is not really willing to help her at times. Pain controlled, continue scheduled Tylenol t.i.d., baclofen 10 mg b.i.d., West q.6 p.r.n.. Assessment & Plan (03/05/2024 12:23 PM SURVEY MANAGER): This is treated non operatively. We will consult and continue physical and occupational therapy. Speech therapy will also work with Amy because at the present time she can not even feed herself. We will continue the West as ordered for pain. We will continue Lovenox 40 mg subcutaneous daily for DVT prophylaxis. Our goal is a transition to the community setting in a safe fashion with reduced fall risk. She will follow up with Orthopedics in the outpatient clinic. Abnormal CXR 03/05/2024 Assessment & Plan (04/05/2024 2:24 PM SURVEY MANAGER): Nodular opacities noted. Symptom a current such as new cough, chest pain or shortness of breath. I suggest follow up with primary provider post discharge Assessment & Plan (03/05/2024 12:33 PM SURVEY MANAGER): Nodular opacities noted. Symptom a current such as new cough, chest pain or shortness of breath. I suggest follow up with primary provider post discharge Asthma 03/02/2024 Overview (03/02/2024): Asthma Assessment & Plan (03/07/2024 3:42 PM SURVEY MANAGER): Patient with some rhonchi but no bronchospasm. [...] disease Assessment & Plan (04/19/2024 5:46 PM SURVEY MANAGER): Left upper extremity contracture. Continue baclofen, pain control, post stroke prophylaxis with blood pressure control and atorvastatin. Assessment & Plan (03/14/2024 6:39 PM SURVEY MANAGER): Chronic left lower and left upper extremity weakness. Continue post stroke prophylaxis with blood pressure management, rosuvastatin. Baclofen scheduled b.i.d. for spasms Assessment & Plan (03/07/2024 3:38 PM SURVEY MANAGER): Unchanged weakness to left upper and lower extremity edema. Continue baclofen for spasms. Continue post stroke prophylaxis with blood pressure control, rosuvastatin Dislocation of shoulder joint 02/22/2024 Contracture of multiple joints 11/04/2022 Essential hypertension 11/04/2022 Assessment & Plan (04/19/2024 5:43 PM SURVEY MANAGER): Patient's blood pressure has been lower however patient asymptomatic. Discontinue amlodipine. Reduce lisinopril to 20 mg daily. Recommend close follow-up with PCP Assessment & Plan (04/18/2024 8:10 PM SURVEY MANAGER): Blood pressure lower, we will hold Norvasc, if remains lower would recommend reducing lisinopril dose. Continue 40 mg daily for now Assessment & Plan (04/16/2024 8:43 AM SURVEY MANAGER): Chronic, stable. Continue scripting amlodipine and lisinopril Assessment & Plan (03/22/2024 4:36 PM SURVEY MANAGER): This is chronic and stable. We will continue scripting of amlodipine and lisinopril Assessment & Plan (03/16/2024 6:37 PM SURVEY MANAGER): Blood pressure well controlled, continue lisinopril, Norvasc Assessment & Plan (03/14/2024 6:37 PM SURVEY MANAGER): Blood pressure is mildly elevated, will increase Norvasc to 10 mg daily, continue lisinopril 40 mg daily Assessment & Plan (03/13/2024 7:54 AM SURVEY MANAGER): This is chronic and currently stable. We will continue amlodipine and lisinopril as scripted Assessment & Plan (03/07/2024 3:36 PM SURVEY MANAGER): Blood pressure well controlled, continue Norvasc 5 mg daily, lisinopril 40 mg daily, Mixed hyperlipidemia 11/04/2022 Assessment & Plan (04/16/2024 8:44 AM SURVEY MANAGER): Continue scripting atorvastatin 40 mg daily Resolved Problems Problem Noted Date Diagnosed Date Resolved Date Gross hematuria 03/22/2024 03/24/2024 Assessment & Plan (03/22/2024 4:35 PM SURVEY MANAGER): She is seen with the director of nurses and it systems administrator. Her depends show evidence of bright [...] 03/22/2024 Assessment & Plan (03/24/2024 12:33 PM SURVEY MANAGER): Voiding on own. Assessment & Plan (03/22/2024 4:48 PM SURVEY MANAGER): Patient had mild retention overweekend. Required ISC [...] late effect of stroke Proteinuria 11/04/2022 03/24/2024 Social History Tobacco Use Types Packs/Day Years Used Date Smoking Tobacco: Never Assessed Comments Unknown Sex and Gender Information Value Date Recorded Sex Assigned at Not on file Legal Sex Female 8:52 PM SURVEY MANAGER Gender Identity Not on file Sexual Orientation Not on file Last Filed Vital Signs Vital Sign Reading Time Taken Comments Blood Pressure 106/65 04/19/2024 5:17 PM SURVEY MANAGER Pulse 84 04/19/2024 5:17 PM SURVEY MANAGER Temperature 36.5 C (97.7 F) 04/19/2024 5:17 PM SURVEY MANAGER Respiratory Rate 20 04/19/2024 5:17 PM SURVEY MANAGER Oxygen Saturation 94% 04/19/2024 5:17 PM SURVEY MANAGER Inhaled Oxygen Concentration - - Weight 50.8 kg (112 lb) 04/15/2024 11:21 AM SURVEY MANAGER Height 160 cm (5' 3 ) 04/15/2024 11:21 AM SURVEY MANAGER Body Mass Index 19.84 04/15/2024 11:21 AM SURVEY MANAGER Plan of Treatment Not on file Procedures Procedure Name Priority Date/Time Associated Diagnosis Comments EGFR Routine 04/18/2024 7:42 AM SURVEY MANAGER BASIC METABOLIC PANEL Routine 04/18/2024 7:42 AM SURVEY MANAGER CBC WITHOUT DIFFERENTIAL Routine 04/18/2024 7:42 AM SURVEY MANAGER XR SHOULDER RIGHT 2 OR MORE VIEWS Schedule Routine, Read Routine (OP Routine) 04/15/2024 11:10 AM SURVEY MANAGER Chronic right shoulder pain EGFR Routine 04/14/2024 6:36 AM SURVEY MANAGER BASIC METABOLIC PANEL Routine 04/14/2024 6:36 AM SURVEY MANAGER PROTIME-INR Routine 04/14/2024 6:36 AM SURVEY MANAGER APTT Routine 04/14/2024 6:36 AM SURVEY MANAGER CBC WITHOUT DIFFERENTIAL Routine 04/14/2024 6:36 AM SURVEY MANAGER from Last 3 Months Results * eGFR (04/18/2024 7:42 AM SURVEY MANAGER) eGFR 90 >=60 mL/min/1. 73 m2 [facility] Comment: Interpretive Data Reference Interval Normal >/= [...] Current interpretive data was last reviewed 2021. [facility], [address] [place] [address]., [address] Blood 04/18/2024 7:4 2 AM SURVEY MANAGER 04/18/2024 8:33 AM SURVEY MANAGER us Krystle MATTHEWS LAB BLOOD ORDERABLES Final Resu lt SHI WHITE [address] [place] [address] Department [place] [address] * (ABNORMAL) CBC without differential (04/18/2024 7:42 AM SURVEY MANAGER) WBC 9.9 3.8 - 9.9 K/cumm SHI WHITE Comment:[address] [address] Hgb 12.0 11.9 - 15.5 g/dL SHI WHITE Comment:[address] [address] Hct 36.7 35.6 - 45.5 % SHI WHITE Comment:[address] [address] Plt 388 150 - 400 K/cumm SHI WHITE Comment:[address] [address] MPV 8.5(L) 9.1 - 12.3 fL SHI WHITE Comment:[address], [address] RBC 3.74(L) 3.90 - 5.20 M/cumm SHI WHITE Comment:[address], [address] MCV 98.1(H) 81.3 - 96.4 fL SHI WHITE Comment:[address], [address] MCH 32.1 27.1 - 33.3 pg SHI WHITE Comment:[address], [address] MCHC 32.7 32.3 - 35.7 g/dL SHI WHITE Comment:[address], [address] RDW CV 14.4 11.1 - 14.9 % SHI WHITE Comment:[address], [address] RDW SD 51.6(H) 35.7 - 48.1 fL SHI WHITE Comment:[address], [address] NRBC abs 0.00 0.00 - 0.01 K/cumm SHI WHITE Comment:[address], [address] Blood 04/18/2024 7:42 AM SURVEY MANAGER 04/18/2024 8:33 AM SURVEY MANAGER us Krystle MATTHEWS LAB BLOOD ORDERABLES Final Resu lt SHI [address] [facility] Department [place] [address] * (ABNORMAL) Basic metabolic panel (04/18/2024 7:42 AM SURVEY MANAGER) Sodium 134(L) 135 - 145 mmol/L SHI WHITE Comment:[address], [address] Potassium, pl 4.5 3.3 - 4.9 mmol/L SHI WHITE Comment:[address], [address] Chloride 100 97 - 110 mmol/L SHI WHITE Comment:[address], [address] CO2 25 22 - 32 mmol/L SHI Comment:[address] [address] Anion gap 9 2 - 15 mmol/L SHI Comment:[address] [address] BUN 29(H) 6 - 25 mg/dL SHI Comment:[address] [address] Creatinine 0.67 0.60 - 1.10 mg/dL SHI Comment:[address] [address] Glucose 102 70 - 199 mg/dL SHI Comment: Interpretive [...] Current interpretive data was last revised 2022. [facility], [address] [place] [address]., [address] Calcium 9.5 8.5 - 10.3 mg/dL SHI Comment:[address] [address] Blood 04/18/2024 7:42 AM SURVEY MANAGER 04/18/2024 8:33 AM SURVEY MANAGER us Krystle MATTHEWS LAB BLOOD ORDERABLES Final Resu lt [facility] [address] Department [place] [address] * XR Shoulder Right 2 or More Views (04/15/2024 11:10 AM SURVEY MANAGER) Anatomical Region Laterality Modality Upper Extremities, Shoulder Right Comp uted Radiography 04/17/2024 8:19 PM SURVEY MANAGER Narrative 04/17/2024 8:23 PM SURVEY MANAGER EXAM DESCRIPTION: XR SHOULDER RIGHT 2 OR [...] by Víctor Sanchez M.D. T: Report ID: [id number] Reading Location: [place] [address] Procedure Note Víctor Sanchez MD - 04/17/2024 [...] by Víctor Sanchez M.D. T: Report ID: [id number] Reading Location: [place] [address] Giovani Alston MD IMG XR PROCEDURES Final Re sult * eGFR (04/14/2024 6:36 AM SURVEY MANAGER) eGFR 90 >=60 mL/min/1. 73 m2 [facility] WHITE Comment: Interpretive Data Reference Interval Normal >/= [...] Current interpretive data was last reviewed 2021. [address] [address] Blood 04/14/2024 6:36 AM SURVEY MANAGER 04/14/2024 7:30 AM SURVEY MANAGER Krystle MATTHEWS LAB BLOOD ORDERABLES Final Resu lt Performing Organization Address City/[facility]/ZIP Co de Phone Number [facility] [place] [address] * aPTT (04/14/2024 6:36 AM SURVEY MANAGER) aPTT 31 22 - 37 sec SHI Comment: Interpretive data aPTT test has not been evaluated for monitoring heparin therapy. The anti-Xa is the preferred test. Current interpretive data was last revised on 2019. [address] [address] Blood 04/14/2024 6:36 AM SURVEY MANAGER 04/14/2024 7:30 AM SURVEY MANAGER Krystle MATTHEWS LAB BLOOD ORDERABLES Final Resu lt SHI [address] [place] [address] * Protime-INR (04/14/2024 6:36 AM SURVEY MANAGER) Pathologist [facility] PT 13.8 12.0 - 14.6 sec SHI WHITE Comment:[address] [address] INR 1.0 0.9 - 1.2 SHI WHITE Comment: Ref Range High Interpretive data Oral anticoagulant therapeutic ranges: Venous thromboembolism prophylaxis or treatment: 2.0-3.0 CARDIOLOGY Standard range: 2.0-3.0 High-intensity range: 2.5-3.5 Refer to indication-specific guidelines for appropriate target ranges for prosthetic heart valve replacement. Current interpretive data was last revised on 2019. [facility], [address] [place] [address]., [address] Blood 04/14/2024 6:36 AM SURVEY MANAGER 04/14/2024 7:30 AM SURVEY MANAGER Krystle MATTHEWS LAB BLOOD ORDERABLES Final Resu lt SHI [address] Department [place] [address] * (ABNORMAL) CBC without differential (04/14/2024 6:36 AM SURVEY MANAGER) Pathologist [facility] WBC 10.7(H) 3.8 - 9.9 K/cumm SHI WHITE Comment:[address] [address] Hgb 11.7(L) 11.9 - 15.5 g/dL SHI WHITE Comment:[address] [address] Hct 36.0 35.6 - 45.5 % SHI WHITE Comment:[address] [address] Plt 364 150 - 400 K/cumm SHI WHITE Comment:[address] [address] MPV 8.7(L) 9.1 - 12.3 fL SHI WHITE Comment:[address] [address] RBC 3.68(L) 3.90 - 5.20 M/cumm SHI Comment:[address], [address] MCV 97.8(H) 81.3 - 96.4 fL SHI Comment:[address], [address] MCH 31.8 27.1 - 33.3 pg SHI Comment:[address], [address] MCHC 32.5 32.3 - 35.7 g/dL SHI Comment:[address], [address] RDW CV 14.2 11.1 - 14.9 % SHI Comment:[address], [address] RDW SD 50.9(H) 35.7 - 48.1 fL SHI Comment:[address], [address] NRBC abs 0.00 0.00 - 0.01 K/cumm SHI Comment:[address], [address] Blood 04/14/2024 6:36 AM SURVEY MANAGER 04/14/2024 7:30 AM SURVEY MANAGER Krystle MATTHEWS LAB BLOOD ORDERABLES Final Resu lt SHI [address] [facility] Department [place] [address] * (ABNORMAL) Basic metabolic panel (04/14/2024 6:36 AM SURVEY MANAGER) Sodium 132(L) 135 - 145 mmol/L SHI Comment:[address], [address] Potassium, pl 4.4 3.3 - 4.9 mmol/L SHI Comment:[address], [address] Chloride 99 97 - 110 mmol/L SHI Comment:[address], [address] CO2 25 22 - 32 mmol/L SHI Comment:[address] [place]., [address] Anion gap 8 2 - 15 mmol/L [facility] Comment:[address] [address] BUN 22 6 - 25 mg/dL SHI Comment:[address] [address] Creatinine 0.66 0.60 - 1.10 mg/dL [facility] Comment:[address] [address] Glucose 90 70 - 199 mg/dL SHI [...] Current interpretive data was last revised 2022. [facility], [facility] [place]., [address] Calcium 9.5 8.5 - 10.3 mg/dL SHI Comment:[address] [address] Blood 04/14/2024 6:36 AM SURVEY MANAGER 04/14/2024 7:30 AM SURVEY MANAGER Krystle MATTHEWS LAB BLOOD ORDERABLES Final Resu lt [facility] Department [place] [address] from Last 3 Months Insurance MEDICARE IDPA Care Teams Field Rep Relationship Specialty Start Date End Date Anand Hernández MD [address] [facility] [address] [place] [address] PCP - General Internal Medicine 07/12/21
[2024-07-12 14:07] LABS: Thyroid Stimulating Hormone 0.576 uIU/mL (0.465-4.680)
[2024-07-12 14:51] LABS: Add Urine Microscopic? YES; Appearance Urine Cloudy (Clear); Bacteria Urine 4+ /hpf; Bilirubin Urine Negative (Negative); Blood Urine Non-Hemolyzed Trace (Negative); Color Urine Yellow (Yellow); Glucose Urine UA Negative (Negative); Ketones Urine Negative (Negative); Leukocyte Esterase Ur 3+ LEU/UL (Negative); Nitrate Urine Negative (Negative); Non Pathogenic Casts 0-2; Protein Urine Negative (Negative); RBC Urine 0-2 /hpf (0-2); Specific Grav Ur 1.007 (1.001-1.035); Squamous Epithelial Cell Urine None Seen /hpf (Few); Urobilinogen Urine 0.2 mg/dL (<2.0); WBC Urine >100 /hpf (0-3); pH Urine 8.5 (5.0-9.0)
[2024-07-12 15:28] LABS: Creatinine Urine 15.8 mg/dL
[2024-07-12 15:31] LABS: MALB Creatinine Ratio 122.8 mg/g (0-30); Microalbumin Urine Random 19.4 mg/L (0-16.7)
== END 2024-07-12 12:41 | disposition home or self-care (01) ==
PROVIDERS: PCP Internal Medicine; Visit Provider Internal Medicine
DX: I10 Essential (primary) hypertension (principal); I69.354 Hemiplegia and hemiparesis following cerebral infarction affecting left non-dominant side; E53.8 Deficiency of other specified B group vitamins; E78.2 Mixed hyperlipidemia; R80.9 Proteinuria, unspecified
CPT/HCPCS: 36415; 80053; 80061; 81001; 82043; 82607; 82746; 84443; 85025; 87077; 87086; 87186